=== PATIENT | female | born 2000 | race Caucasian/White ===

== ENCOUNTER 2021-06-18 12:00 | Outpatient (RCR) | payer OTHER, SELFPAY ==
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
--- NOTE | 2021-04-30 22:15 | P.PNPS_ITS ---
TMS Daily Progress Note Daily TMS Progress Note Date of Service: 04/30/21 Week #: 1 Treatment #(07-26): 1 PHQ-9 Pre-Treatment (07-23): 19 PHQ-9 Most Recent (07-23): 19 Reviewed: TMS Mapping/Re-mapping completed Verification: I have reviewed the TMS Print Shop Manager Note and agree with the contents. The patient remains a candidate to continue TMS treatment per protocol. Assessment and Plan (1) Major depressive disorder, recurrent severe without psychotic features: Status: Acute (2) Generalized anxiety disorder with panic attacks: Status: Acute NEXT ECT MAPPING COMPLETED WITHOUT DIFFICULTY PATIENT TOLERATED 1ST TREAT MENT
--- NOTE | 2021-05-01 21:11 | HO.TMSDAILY2 ---
TMS Daily Progress Note Daily TMS Progress Note Date of Service: 05/01/21 Week #: 1 Treatment #(07-26): 2 PHQ-9 Pre-Treatment (07-23): 19 PHQ-9 Most Recent (07-23): 19 Reviewed: TMS Tech Note Reviewed Verification: I have reviewed the TMS School Attendance Secretary Note and agree with the contents. The patient remains a candidate to continue TMS treatment per protocol.
--- NOTE | 2021-05-05 22:02 | P.PNPS_ITS ---
TMS Daily Progress Note Daily TMS Progress Note Date of Service: 05/04/21 Week #: 1 Treatment #(07-26): 3 PHQ-9 Pre-Treatment (07-23): 19 PHQ-9 Most Recent (07-23): 19 Reviewed: TMS Tech Note Reviewed Verification: I have reviewed the TMS Training And Development Specialist Note and agree with the contents. The patient remains a candidate to continue TMS treatment per pro tocol. Assessment and Plan (1) Major depressive disorder, recurrent severe without psychotic features: Status: Acute (2) Generalized anxiety disorder with panic attacks: Status: Acute Continue TMS treatment patient without adverse effects late entry 05/04
--- NOTE | 2021-05-05 22:07 | HO.TMSDAILY2 ---
TMS Daily Progress Note Daily TMS Progress Note Date of Service: 05/05/21 Week #: 1 Treatment #(07-26): 4 PHQ-9 Pre-Treatment (07-23): 19 PHQ-9 Most Recent (07-23): 19 Reviewed: TMS Tech Note Reviewed Verification: I have reviewed the TMS Case Coordinator Note and agree with the contents. The patient remains a candidate to continue TMS treatment per protocol. Assessment and Plan (1) Major depressive disorder, recurrent severe without psychotic features: Status: Acute (2) Generalized anxiety disorder with panic attacks: Status: Acute Continue TMS treatment patient without adverse effects
--- NOTE | 2021-05-06 22:00 | HO.TMSDAILY2 ---
TMS Daily Progress Note Daily TMS Progress Note Date of Service: 05/06/21 Week #: 1 Treatment #(07-26): 5 PHQ-9 Pre-Treatment (07-23): 19 PHQ-9 Most Recent (07-23): 19 Reviewed: TMS Tech Note Reviewed Verification: I have reviewed the TMS Workforce Development Program Director Note and agree with the contents. The patient remains a candidate to continue TMS treatment per protocol.
--- NOTE | 2021-05-08 21:44 | HO.TMSDAILY2 ---
TMS Daily Progress Note Daily TMS Progress Note Date of Service: 05/07/21 Week #: 2 Treatment #(07-26): 6 PHQ-9 Pre-Treatment (07-23): 19 PHQ-9 Most Recent (07-23): 19 Reviewed: TMS Tech Note Reviewed Verification: I have reviewed the TMS Poultry Raiser Note and agree with the contents. The patient remains a candidate to continue TMS treatment per protocol. Assessment and Plan (1) Major depressive disorder, recurrent severe without psychotic features: Status: Acute (2) Generalized anxiety disorder with panic attacks: Status: Acute Continue TMS treatment patient without adverse effects
--- NOTE | 2021-05-08 21:46 | HO.TMSDAILY2 ---
TMS Daily Progress Note Daily TMS Progress Note Date of Service: 05/08/21 Week #: 2 Treatment #(07-26): 7 PHQ-9 Pre-Treatment (07-23): 19 PHQ-9 Most Recent (07-23): 19 Reviewed: TMS Tech Note Reviewed Verification: I have reviewed the TMS Instrumentation Designer Note and agree with the contents. The patient remains a candidate to continue TMS treatment per protocol. Assessment and Plan (1) Major depressive disorder, recurrent severe without psychotic features: Status: Acute (2) Generalized anxiety disorder with panic attacks: Status: Acute Continue TMS treatment patient without adverse effects no improvement yet noted
--- NOTE | 2021-05-11 21:39 | HO.TMSDAILY2 ---
TMS Daily Progress Note Daily TMS Progress Note Date of Service: 05/11/21 Week #: 2 Treatment #(07-26): 8 PHQ-9 Pre-Treatment (07-23): 19 PHQ-9 Most Recent (07-23): 19 Reviewed: TMS Tech Note Reviewed Verification: I have reviewed the TMS Private Duty Rn Note and agree with the contents. The patient remains a candidate to continue TMS treatment per protocol. Assessment and Plan (1) Major depressive disorder, recurrent severe without psychotic features: Status: Acute (2) Generalized anxiety disorder with panic attacks: Status: Acute Continue TMS treatment patient without adverse effects no improvement yet noted
--- NOTE | 2021-05-12 21:43 | HO.TMSDAILY2 ---
TMS Daily Progress Note Daily TMS Progress Note Date of Service: 05/12/21 Week #: 2 Treatment #(07-26): 9 PHQ-9 Pre-Treatment (07-23): 19 PHQ-9 Most Recent (07-23): 19 Reviewed: TMS Tech Note Reviewed Verification: I have reviewed the TMS Mine Inspector Federal Note and agree with the contents. The patient remains a candidate to continue TMS treatment per protocol. Assessment and Plan (1) Major depressive disorder, recurrent severe without psychotic features: Status: Acute (2) Generalized anxiety disorder with panic attacks: Status: Acute Continue TMS treatment patient without adverse effects no improvement yet noted
--- NOTE | 2021-05-18 23:36 | P.PNPS_ITS ---
TMS Daily Progress Note Daily TMS Progress Note Date of Service: 05/18/21 Week #: 2 Treatment #(07-26): 10 PHQ-9 Pre-Treatment (07-23): 19 PHQ-9 Most Recent (07-23): 19 Reviewed: TMS Tech Note Reviewed Verification: I have reviewed the TMS Marketing Systems Manager Note and agree with the contents. The patient remains a candidate to continue TMS treatment per pr otocol. Assessment and Plan (1) Major depressive disorder, recurrent severe without psychotic features: Status: Acute (2) Generalized anxiety disorder with panic attacks: Status: Acute Continue TMS treatment patient without adverse effects no improvement yet noted
--- NOTE | 2021-05-19 22:11 | P.PNPS_ITS ---
TMS Daily Progress Note Daily TMS Progress Note Date of Service: 05/19/21 Week #: 3 Treatment #(07-26): 11 PHQ-9 Pre-Treatment (07-23): 19 PHQ-9 Most Recent (07-23): 19 Reviewed: TMS Tech Note Reviewed Verification: I have reviewed the TMS Watermaster Note and agree with the contents. The patient remains a candidate to continue TMS treatment per pr otocol. Assessment and Plan (1) Major depressive disorder, recurrent severe without psychotic features: Status: Acute (2) Generalized anxiety disorder with panic attacks: Status: Acute Continue TMS treatment patient without adverse effects no improvement yet noted
--- NOTE | 2021-05-20 16:28 | HO.TMSDAILY2 ---
TMS Daily Progress Note Daily TMS Progress Note Date of Service: 05/20/21 Week #: 3 Treatment #(07-26): 12 PHQ-9 Pre-Treatment (07-23): 19 PHQ-9 Most Recent (07-23): 19 Reviewed: TMS Tech Note Reviewed Verification: I have reviewed the TMS Field Training Agent Note and agree with the contents. The patient remains a candidate to continue TMS treatment per protocol.
--- NOTE | 2021-05-25 23:05 | P.PNPS_ITS ---
TMS Daily Progress Note Daily TMS Progress Note Date of Service: 05/25/21 Week #: 3 Treatment #(07-26): 13 PHQ-9 Pre-Treatment (07-23): 19 PHQ-9 Most Recent (07-23): 19 Reviewed: TMS Tech Note Reviewed Verification: I have reviewed the TMS Glass Cut Off Tender Note and agree with the contents. The patient remains a candidate to continue TMS treatment per pr otocol.
--- NOTE | 2021-05-26 23:26 | P.PNPS_ITS ---
TMS Daily Progress Note Daily TMS Progress Note Date of Service: 05/26/21 Week #: 3 Treatment #(07-26): 14 PHQ-9 Pre-Treatment (07-23): 19 PHQ-9 Most Recent (07-23): 19 Reviewed: TMS Tech Note Reviewed Verification: I have reviewed the TMS Campus Administrative Assistant Note and agree with the contents. The patient remains a candidate to continue TMS treatment per pr otocol. Assessment and Plan (1) Major depressive disorder, recurrent severe without psychotic features: Status: Acute (2) Generalized anxiety disorder with panic attacks: Status: Acute Continue TMS treatment patient without adverse effects no improvement yet noted
--- NOTE | 2021-05-27 22:14 | HO.TMSDAILY2 ---
TMS Daily Progress Note Daily TMS Progress Note Date of Service: 05/27/21 Week #: 3 Treatment #(07-26): 15 PHQ-9 Pre-Treatment (07-23): 19 PHQ-9 Most Recent (07-23): 19 Reviewed: TMS Tech Note Reviewed Verification: I have reviewed the TMS Hearing Screen Coordinator Note and agree with the contents. The patient remains a candidate to continue TMS treatment per protocol. Assessment and Plan (1) Major depressive disorder, recurrent severe without psychotic features: Status: Acute (2) Generalized anxiety disorder with panic attacks: Status: Acute Continue TMS treatment patient without adverse effects no improvement yet noted
--- NOTE | 2021-05-29 23:48 | HO.TMSDAILY2 ---
TMS Daily Progress Note Daily TMS Progress Note Date of Service: 05/29/21 Week #: 4 Treatment #(07-26): 17 PHQ-9 Pre-Treatment (07-23): 19 PHQ-9 Most Recent (07-23): 19 Reviewed: TMS Tech Note Reviewed Verification: I have reviewed the TMS Lottery Manager Note and agree with the contents. The patient remains a candidate to continue TMS treatment per protocol.
--- NOTE | 2021-06-01 23:47 | P.PNPS_ITS ---
TMS Daily Progress Note Daily TMS Progress Note Date of Service: 05/28/21 Week #: 4 Treatment #(07-26): 16 PHQ-9 Pre-Treatment (07-23): 19 PHQ-9 Most Recent (07-23): 19 Reviewed: TMS Tech Note Reviewed Verification: I have reviewed the TMS Equipment Operator/Laborer/Supervisor Note and agree with the contents. The patient remains a candidate to continue TMS treatment per pr otocol.
--- NOTE | 2021-06-01 23:50 | HO.TMSDAILY2 ---
TMS Daily Progress Note Daily TMS Progress Note Date of Service: 06/01/21 Week #: 4 Treatment #(07-26): 18 PHQ-9 Pre-Treatment (07-23): 19 PHQ-9 Most Recent (07-23): 19 Reviewed: TMS Tech Note Reviewed Verification: I have reviewed the TMS Program Management Specialist Note and agree with the contents. The patient remains a candidate to continue TMS treatment per protocol. Assessment and Plan (1) Major depressive disorder, recurrent severe without psychotic features: Status: Acute (2) Generalized anxiety disorder with panic attacks: Status: Acute consider remapping
--- NOTE | 2021-06-03 23:48 | HO.TMSDAILY2 ---
TMS Daily Progress Note Daily TMS Progress Note Date of Service: 06/03/21 Week #: 4 Treatment #(07-26): 19 PHQ-9 Pre-Treatment (07-23): 19 PHQ-9 Most Recent (07-23): 19 Reviewed: TMS Tech Note Reviewed Verification: I have reviewed the TMS Director Bioinformatics Note and agree with the contents. The patient remains a candidate to continue TMS treatment per protocol. Assessment and Plan (1) Major depressive disorder, recurrent severe without psychotic features: Status: Acute (2) Generalized anxiety disorder with panic attacks: Status: Acute consider remap
--- NOTE | 2021-06-05 22:50 | HO.TMSDAILY2 ---
TMS Daily Progress Note Daily TMS Progress Note Date of Service: 06/05/21 Week #: 1 Treatment #(07-26): 21 PHQ-9 Pre-Treatment (07-23): 19 PHQ-9 Most Recent (07-23): 19 Reviewed: TMS Mapping/Re-mapping completed Verification: I have reviewed the TMS Foreclosure Home Inspector Note and agree with the contents. The patient remains a candidate to continue TMS treatment per protocol.
--- NOTE | 2021-06-09 22:36 | P.PNPS_ITS ---
TMS Daily Progress Note Daily TMS Progress Note Date of Service: 06/18/21 Week #: 5 Treatment #(07-26): 21 PHQ-9 Pre-Treatment (07-23): 19 PHQ-9 Most Recent (07-23): 19 Reviewed: TMS Tech Note Reviewed Verification: I have reviewed the TMS Electric Motor Tester Assembler Note and agree with the contents. The patient remains a candidate to continue TMS treatment per p jael. Assessment and Plan (1) Major depressive disorder, recurrent severe without psychotic features: Status: Acute (2) Generalized anxiety disorder with panic attacks: Status: Acute remap completed
--- NOTE | 2021-06-10 23:18 | P.PNPS_ITS ---
TMS Daily Progress Note Daily TMS Progress Note Date of Service: 06/10/21 Week #: 5 Treatment #(07-26): 22 PHQ-9 Pre-Treatment (07-23): 19 PHQ-9 Most Recent (07-23): 19 Reviewed: TMS Tech Note Reviewed Verification: I have reviewed the TMS Infrastructure Design Engineer Note and agree with the contents. The patient remains a candidate to continue TMS treatment per p jael.
--- NOTE | 2021-06-11 23:19 | P.PNPS_ITS ---
TMS Daily Progress Note Daily TMS Progress Note Date of Service: 06/11/21 Week #: 5 Treatment #(07-26): 23 PHQ-9 Pre-Treatment (07-23): 19 PHQ-9 Most Recent (07-23): 19 Reviewed: TMS Tech Note Reviewed Verification: I have reviewed the TMS Principle Software Engineer Note and agree with the contents. The patient remains a candidate to continue TMS treatment per p jael.
--- NOTE | 2021-06-12 17:26 | HO.TMSDAILY2 ---
TMS Daily Progress Note Daily TMS Progress Note Date of Service: 06/12/21 Week #: 6 Treatment #(07-26): 26 PHQ-9 Pre-Treatment (07-23): 19 PHQ-9 Most Recent (07-23): 19 Reviewed: TMS Tech Note Reviewed Verification: I have reviewed the TMS Internet Cafe Manager Note and agree with the contents. The patient remains a candidate to continue TMS treatment per protocol. Assessment and Plan (1) Major depressive disorder, recurrent severe without psychotic features: Status: Acute (2) Generalized anxiety disorder with panic attacks: Status: Acute monitor for response
--- NOTE | 2021-06-15 17:27 | HO.TMSDAILY2 ---
TMS Daily Progress Note Daily TMS Progress Note Date of Service: 06/15/21 Week #: 6 Treatment #(07-26): 27 PHQ-9 Pre-Treatment (07-23): 19 PHQ-9 Most Recent (07-23): 19 Reviewed: TMS Tech Note Reviewed Verification: I have reviewed the TMS Electronic Health Records Specialist Note and agree with the contents. The patient remains a candidate to continue TMS treatment per protocol. Assessment and Plan (1) Major depressive disorder, recurrent severe without psychotic features: Status: Acute (2) Generalized anxiety disorder with panic attacks: Status: Acute monitor for response none to this point
--- NOTE | 2021-06-16 19:50 | HO.TMSDAILY2 ---
TMS Daily Progress Note Daily TMS Progress Note Date of Service: 06/16/21 Week #: 6 Treatment #(07-26): 28 PHQ-9 Pre-Treatment (07-23): 19 PHQ-9 Most Recent (07-23): 19 Reviewed: TMS Tech Note Reviewed Verification: I have reviewed the TMS Siding Coreboard Inspector Note and agree with the contents. The patient remains a candidate to continue TMS treatment per protocol. Assessment and Plan (1) Major depressive disorder, recurrent severe without psychotic features: Status: Acute (2) Generalized anxiety disorder with panic attacks: Status: Acute To this point no response despite remapping
--- NOTE | 2021-06-17 23:13 | P.PNPS_ITS ---
TMS Daily Progress Note Daily TMS Progress Note Date of Service: 06/17/21 Week #: 6 Treatment #(07-26): 29 PHQ-9 Pre-Treatment (07-23): 19 PHQ-9 Most Recent (07-23): 19 Reviewed: TMS Tech Note Reviewed Verification: I have reviewed the TMS Child Caregiver Private Home Note and agree with the contents. The patient remains a candidate to continue TMS treatment per p jael. Assessment and Plan (1) Major depressive disorder, recurrent severe without psychotic features: Status: Acute (2) Generalized anxiety disorder with panic attacks: Status: Acute Patient without clear response no worsening of mood but to this point no improvement
--- NOTE | 2021-06-22 22:46 | P.PNPS_ITS ---
TMS Daily Progress Note Daily TMS Progress Note Date of Service: 06/18/21 Week #: 6 Treatment #(07-26): 30 PHQ-9 Pre-Treatment (07-23): 19 PHQ-9 Most Recent (07-23): 19 CGI-I Most Recent: 4 = No Change Reviewed: TMS Tech Note Reviewed Verification: I have reviewed the TMS Deputy Program Manager Note and agree with the contents. The patient remains a candidate to continue TMS treatment per protocol. Assessment and Plan (1) Major depressive disorder, recurrent severe without psychotic features: Status: Acute (2) Generalized anxiety disorder with panic attacks: Status: Acute Patient without clear response no worsening of mood but to this point no improvement pt and mother wish to stop given no change did discuss options of ketamine esketamine mother and pt may pursue [facility]
== END 2021-06-22 08:08 | disposition home or self-care (01) ==
LOC: HO.PTMS 12:00
PROVIDERS: Visit Provider Psychiatry & Neurology Psychiatry
DX: F33.2 Major depressive disorder, recurrent severe without psychotic features (principal); F41.1 Generalized anxiety disorder; F41.0 Panic disorder [episodic paroxysmal anxiety]
CPT/HCPCS: 90867; 90868; 90869

== ENCOUNTER 2025-02-19 15:22 | Emergency (ER) | payer OTHER, SELFPAY ==
--- NOTE | ~2025-02-19 | CT_ITS ---
CLINICAL HISTORY: Flank pain. kideny stones? CT abdomen and pelvis without contrast Comparison: None provided Findings: Lung bases clear. No acute bony abnormality. Liver and spleen within normal limits. Pancreas and adrenal glands unremarkable. Gallbladder within normal limits. Punctate nonobstructing right renal stone. No left renal or bilateral ureteral stone. No focal abnormality or hydronephrosis. No evidence for aortic aneurysm. No free fluid or adenopathy in the pelvis. No diverticulitis. Appendix not identified. Uterus normal size. No adnexal abnormality. Impression: No acute processes This document has been electronically signed by: Bennie Benites MD on 02/19/2025 19:09:45
[2025-02-19 16:00] VITALS: BP 124/86; PULSE 84; RESP 16; TEMP 36.6; O2SAT 100; BMI 20.8
--- NOTE | 2025-02-19 16:19 | ED.FEMALEGU ---
HPI - Female Genitourinary General Chief complaint: Urogenital-Female Stated complaint: Kidney stones? Time Seen by Provider: 02/19/25 18:01 Source: patient Mode of arrival: ambulatory Limitations: no limitations History of Present Illness ED Provider: William Portillo HPI Narrative: 24 yold female with pmh of kidney stones presents to the ED for right flank pain nausea that started this afternoon. patient denies any abdominal pain, fever, or chills. Patient denies vaginal discharge or abdominal pain. patient states no trauma Related Data Previous Rx's ?Medication ?Instructions ?Recorded ketorolac 10 mg tablet 10 mg PO Q6H PRN pain #20 tabs 02/19/25 ondansetron 4 mg disintegrating 4 mg PO Q8H PRN nausea and 02/19/25 tablet vomiting #8 tabs Allergies Allergy/AdvReac Type Severity Reaction Status Date / Time lamotrigine (From Lamictal) Allergy Intermediate RASH Verified 04/30/21 10:48 Penicillins Allergy Hives Verified 02/19/25 16:03 Review of Systems Review of Systems: right flank pain Yes all other systems are reviewed and are negative [facility] Past Medical History Medical History (Updated 02/19/25 @ 19:45 by JOHANA Preston) Generalized anxiety disorder with panic attacks Major depressive disorder, recurrent severe without psychotic features Physical Exam Vital Signs: Vital Signs: Last Vital Signs Temp 98.2 F 02/19/25 19:51 Pulse 66 02/19/25 19:51 Resp 16 02/19/25 19:51 BP 115/67 02/19/25 19:51 Pulse Ox 98 02/19/25 19:51 O2 Del Method Room Air 02/19/25 19:51 BMI result Body Mass Index 20.8 Const: General: cooperative, healthy appearing, comfortable, no acute distress, well developed, alert, awake and Physically active Orientation/consciousness: patient oriented x3 HEENT: Head: Yes normal to inspection, Yes No palpable skull fracture present, Yes normocephalic and Yes atraumatic Ears: hearing grossly normal bilaterally, external ears normal, TM's normal bilaterally, TM normal on the right, TM normal on the left, EAC's normal and mastoids normal Eyes: General: appearance normal, both eyes and all related structures Neck: Neck: Yes normal visual inspection, Yes full ROM, Yes no lymphadenopathy, Yes no meningeal signs, Yes trachea midline, Yes supple, No anterior neck swelling and No tender Chest: Chest palpation & inspection: normal inspection of the chest and normal palpation of entire chest wall Resp: Effort & Inspection: normal respiratory effort and able to speak in complete sentences Auscultation: clear to auscultation bilaterally Cardio: Jugular venous distension: no JVD Heart sounds: S1 normal heart sound present and S2 normal heart sound present GI: Inspection: Yes normal to inspection Palpation (GI): Soft to palpation, not firm, nontender, no guarding and not rigid : General: Yes CVA tenderness (Right) Back/Spine/Pelvis: Back: CVA tenderness (Right) and No back tenderness Skin: General skin exam: no rashes or lesions noted, elasticity normal and turgor normal Neuro: General: patient oriented x3, gait normal, tone normal, moves all extremities, Normal light touch and pain sensation, no meningeal signs, no focal motor deficits and CN's II-XI intact bilaterally Extrem: General: Yes normal to inspection, Yes full ROM and Yes capillary refill normal Psych: Appearance: grossly normal, well kempt and not disheveled Course Course Course Narrative: RME: 23-year-old female presents to ED for right flank pain with nausea vomiting. Patient states history of kidney stones. Positive for right flank CVA. Labs UA Zofran ordered Medications Administered Discontinued Medications Generic Name Dose Route Start Last Admin Trade Name Freq PRN Reason Stop Dose Admin Ketorolac Tromethamine 30 mg 02/19/25 18:01 02/19/25 18:17 Ketorolac Tromethamine 30 Mg/Ml Vial IVPUSH 02/19/25 18:02 30 mg ONCE ONE Administration Ondansetron HCl 4 mg 02/19/25 16:06 02/19/25 16:08 Ondansetron Odt 4 Mg Tab.Rapdis TRANSLINGU 02/19/25 16:07 4 mg ONCE ONE Administration Medical Decision Making Medical Decision Making [facility] Narrative: 24 yold female with pmh of kidney stones presents to the ED Right flank pain with dysuria and worse on movement. Patinet deneis any fever, chill, urinary incontinence, or abdominal pain. labs are reassuring. UA shows blood so patient sent for abdominal CT scan withut contract. Shows right renal stone. Patient states pain resolved after toradol and zofran. Patient and mother explained worrisome signs and informed to return to the ED. not suspecting appendicitis, ovarian torsion, ectopcic , or any other concerning symptoms. Differential Diagnosis Differential Diagnoses: The differential diagnosis associated with the presentation includes (kidney stones, pyelonephritits, UTI) Admission/Observation Consideration of admission/observation: Escalation of care including admission/observation considered Lab Data MDM Lab Attestation statement: I reviewed the patient's lab results. 02/19/25 16:20 02/19/25 16:20 Labs: Lab Results 02/19/25 02/19/25 Range/Units 16:20 16:50 WBC 10.7 (4.8-10.8) X10*3/uL RBC 4.11 L (4.20-5.50) X10*6/uL Hgb 12.0 (12.0-16.0) g/dl Hct 34.0 L (37.0-47.0) % MCV 82.7 (80.0-98.0) fL MCH 29.2 (27.0-33.0) pg MCHC 35.3 H (31.0-35.0) g/dl RDW 11.9 (11.0-16.0) % Plt Count 300 (160-400) X10*3/uL MPV 10.5 (9.4-12.3) fL Immature Gran % (Auto) 0.5 H (0.0-0.4) % Neut % (Auto) 79.9 H (45-73) % Lymph % (Auto) 14.1 L (20-40) % Early % (Auto) 5.0 (2-11) % Eos % (Auto) 0.2 (0-4) % Baso % (Auto) 0.3 (0-2) % Lymph # (Auto) 1.5 (1.2-4.9) X10*3/uL Early # (Auto) 0.5 (0.1-1.2) X10*3/uL Eos # (Auto) 0.0 (0.0-0.4) X10*3/uL Baso # (Auto) 0.0 (0.0-0.2) X10*3/uL Abs Immat Gran (auto) 0.05 H (0.00-0.03) X10*3/uL Absolute Neuts (auto) 8.5 H (2.0-8.3) x10*3/uL Absolute Nucleated RBC 0.000 (0.0-0.012) X10*3/uL Nucleated RBC % (auto) 0.0 (0.0-0.2) /100WBC Sodium 134 L (135-145) mmol/L Potassium 4.2 (3.3-5.1) mmol/L Chloride 103 (96-108) mmol/L Carbon Dioxide 23 (22-29) mmol/L Anion Gap 12 (12-20) BUN 15 (9-16) mg/dL Creatinine 0.60 (0.5-1.4) mg/dL Estim Creat Clear Calc 125.9 Estimated GFR > 60 Random Glucose 98 (60-115) mg/dL Calcium 9.5 (8.4-10.2) mg/dL Total Bilirubin 0.5 (0.0-1.0) mg/dL AST 28 (5-31) U/L ALT 19 (0-31) U/L Alkaline Phosphatase 59 (39-117) U/L Total Protein 7.2 (6.5-8.0) g/dL Albumin 4.4 (3.5-5.0) g/dL Beta HCG, Quant < 2 mIU/mL Urine Color Yellow Urine Appearance Clear Urine pH 7.5 (5.0-9.0) Ur Specific [place] 1.025 (1.005-1.025) Urine Protein 30 (1+) H (Neg-Trace) mg/dL Urine Glucose (UA) Negative (Negative) mg/dL Urine Ketones Negative (Negative) mg/dL Urine Blood Moderate (2+) H (Negative) Urine Nitrite Negative (Negative) Ur Leukocyte Esterase Trace H (Negative) Urine RBC 11-20 H (0-2) /HPF Urine WBC 0-5 (0-5) /HPF Ur Squamous Epith Cells 0-2 (0-2) /HPF Urine Bacteria None Seen (None Seen) Hyaline Casts 0-2 (0-2) /LPF Urine Test NEGATIVE (NEGATIVE) Independent Interpretation I performed an independent interpretation of an: CT Scan Radiology Impression Discussion of test interpretation with radiology: I have reviewed the radiologist's reading. Independent Historian Clinical information obtained from an independent historian. History obtained from or confirmed by: Other (patient) Discharge Plan Discharge Clinical Impression: Renal colic on right side Patient Disposition: Home, Self-Care Instructions: Renal Colic (ED), Flank Pain (ED) Additional Instructions: Recommend follow-up with urologist and primary care provider. Return to the ED immediately for any abdominal pain, nausea, vomiting, flank pain, fever, chills, night sweats, blood in urine, weakness, dizziness, or any other concerning symptoms. Ordering Physician: William Portillo Date of Service: 02/19/25 Procedure(s): CT abdomen pelvis wo IV con Accession Number(s): [id number] cc: William Portillo; Physician,Unknown ~ Report Number: [id number]: Total DLP = 388.00 mGy-cm CLINICAL HISTORY: Flank pain. kideny stones? CT abdomen and pelvis without contrast Comparison: None provided Findings: Lung bases clear. No acute bony abnormality. Liver and spleen within normal limits. Pancreas and adrenal glands unremarkable. Gallbladder within normal limits. Punctate nonobstructing right renal stone. No left renal or bilateral ureteral stone. No focal abnormality or hydronephrosis. No evidence for aortic aneurysm. No free fluid or adenopathy in the pelvis. No diverticulitis. Appendix not identified. Uterus normal size. No adnexal abnormality. Impression: No acute processes This document has been electronically signed by: Bennie Benites MD on 02/19/2025 19:09:45 Dictated By: Bennie Benites MD Signed By: <Electronically signed by Bennie Benites MD in OV> 02/19/25 1910 Prescriptions: New ketorolac 10 mg tablet 10 mg PO Q6H PRN (Reason: pain) Qty: 20 0RF Rx Instructions: patient received 30mg IM toradol in the ED ondansetron 4 mg tablet,disintegrating 4 mg PO Q8H PRN (Reason: nausea and vomiting) Qty: 8 0RF Referrals: [facility] [Provider Group, Urology] - 2 days Referral Note: Renal colic. History of kidney stones Clinical Impression: Renal colic on right side Stand Alone Forms: Work/School Release Interventions: ED Discharge Assessment Last Done: 02/19/25 19:51 Discharge Date/Time: 02/19/25 20:00 Print Language: Luxembourgish
[2025-02-19 16:25] LABS: MANUAL DIFF FLAG NO
[2025-02-19 16:29] LABS: Hematocrit 34.0 % (37.0-47.0); Hemoglobin 12.0 g/dl (12.0-16.0); Imm Gran Abs Auto 0.05 X10*3/uL (0.00-0.03); Imm Gran Pct Auto 0.5 % (0.0-0.4); Lymphocytes Absolute Auto 1.5 X10*3/uL (1.2-4.9); Mean Corpuscular HGB Conc 35.3 g/dl (31.0-35.0); Mean Corpuscular Hemoglobin 29.2 pg (27.0-33.0); Mean Corpuscular Volume 82.7 fL (80.0-98.0); NRBC Abs Auto 0.000 X10*3/uL (0.0-0.012); NRBC Pct Auto 0.0 /100WBC (0.0-0.2); Platelet Count 300 X10*3/uL (160-400); Red Blood Count 4.11 X10*6/uL (4.20-5.50); White Blood Count 10.7 X10*3/uL (4.8-10.8)
--- OUTSIDE RECORDS SUMMARY | 2025-02-19 16:48 | XMS_ITS | Encounter Summary ---
Author Organization [facility] Address [address] [place] [address] Phone Care Team Providers Care Record Clerk Salesperson Name Role Phone Elizabeth Rhodes MD Primary Care Provider [phone] Reason for Visit * Reason Comments Med Refill Encounter Details Date Type Department Care Team (Late st Contact Info) Description 08/08/2018 Refill [facility] - [address] [address] [place] [address] [place] [id number] Current severe episode of major depressive disorder without psychotic features without prior episode; Anxiety Social History Tobacco Use Types Packs/Day Years Used Date Smoking Tobacco: Never Smokeless Tobacco: Never Comments Unknown Sex and Gender Information Value Date Recorded Sex Assigned at Not on file Legal Sex Female 6:18 PM EDT Gender Identity Female 12/14/2021 9:53 PM EDT Sexual Orientation Bisexual 11/28/2020 2: 39 PM EDT documented as of this encounter Miscellaneous Notes * Telephone Encounter - Elizabeth Rhodes MD - 08/09/2018 2:15 PM EST Seen yesterday and Rx sent. documented in this encounter Plan of Treatment Not on file documented as of this encounter Visit Diagnoses Diagnosis Current severe episode of major depressive disorder without psychotic features without prior episode Anxiety Anxiety state, unspecified documented in this encounter Care Teams Record Clerk Salesperson Relationship Specialty Start Date End Date Elizabeth Rhodes MD [address] [facility] [place] [address] PCP - General 11/02/17 09/28/22 documented as of this encounter
--- OUTSIDE RECORDS SUMMARY | 2025-02-19 16:48 | XMS_ITS | Encounter Summary ---
Author Organization [facility] Address [address] [place] [address] Phone Care Team Providers Care Deep Submergence Vehicle Operator Name Role Phone Elizabeth Rhodes MD Primary Care Provider [phone] Reason for Visit * Reason Comments Med Refill Encounter Details Date Type Department Care Team (Late st Contact Info) Description 04/12/2022 Refill [facility] - [address] [address] Elizabeth Rhodes MD [address] [place] [address] Dysmenorrhea Social History Tobacco Use Types Packs/Day Years Used Date Smoking Tobacco: Never Smokeless Tobacco: Never Hunger/Food Answer Date Recorded In the last 12 months, did y ou or your family ever eat less than you felt you should because there wasn't enough money for food? No 11/28/2020 Stable Housing Answer Date Recorded Are you worried that in the next 2 months you may not have stable housing? No 11/28/2020 Transportation Concerns Answer Date Rec orded In the last 12 months, have you or your family ever had to go without healthcare because you didn't have a way to get there? No 11/28/2020 Hazards in Home Answer Date Recorded Think about the place you li ve. Do you have problems with any of the following? Pests (mice or roaches), mold, no/not working smoke detectors, water leaks, no window guards. No 2020 Financing Utilities Answer Date Recorde d In the last 12 months, has t he electric, gas, oil, or water company threatened to shut off your services in your home? No 11/28/2020 Safety at Home Answer Date Recorded Are you or your family worried about feeling saf e in your home? No 11/28/2020 Outside Support Answer Date Recorded Do you feel that you need mo re support from other people or programs to help you care for yourself or your family? No 11/28/2020 Understanding Health Concerns Answer Da te Recorded Do you need help understandi ng your or your child's healthcare needs (diagnosis, medications, plan, etc.)? No 11/28/2020 Financing Health Concerns Answer Date R ecorded In the last 12 months, was t here a time when your child needed to see a doctor or get medications or supplies but could not because of cost? No 11/28/2020 Missing School or Work Answer Date Oscar rded Did you or your child miss s chool or work because of a health problem that could have been avoided? No 11/28/2020 Comments No Sex and Gender Information Value Date Recorded Sex Assigned at Not on file Legal Sex Female 6:18 PM EDT Gender Identity Female 12/14/2021 9:53 PM EDT Sexual Orientation Bisexual 11/28/2020 2: 39 PM EDT documented as of this encounter Plan of Treatment Not on file documented as of this encounter Visit Diagnoses Diagnosis Dysmenorrhea documented in this encounter Care Teams Deep Submergence Vehicle Operator Relationship Specialty Start Date End Date Elizabeth Rhodes MD [address] [place] [address] [place] [address] PCP - General 11/02/17 09/28/22 documented as of this encounter
[2025-02-19 16:50] LABS: Alanine Aminotransferase 19 U/L (0-31); Albumin Level 4.4 g/dL (3.5-5.0); Alkaline Phosphatase 59 U/L (39-117); Anion Gap 12 (12-20); Aspartate Amino Transferase 28 U/L (5-31); Blood Urea Nitrogen 15 mg/dL (9-16); Calcium 9.5 mg/dL (8.4-10.2); Carbon Dioxide 23 mmol/L (22-29); Chloride 103 mmol/L (96-108); Creatinine Clr Calc Pharmacy 125.9; Estimated Glomerular Filt Rate > 60; Potassium 4.2 mmol/L (3.3-5.1); Sodium 134 mmol/L (135-145); Total Protein 7.2 g/dL (6.5-8.0)
--- OUTSIDE RECORDS SUMMARY | 2025-02-19 16:50 | XMS_ITS | Encounter Summary ---
Author Organization [facility] Address [address] [place] [address] Phone Care Team Providers Care Forestry Instructor Name Role Phone Elizabeth Rhodes MD Primary Care Provider [phone] Encounter Details Date Type Department Care Team (Late st Contact Info) Description 02/10/2017 Conversion Encounter [facility] - [address] [address] Social History Tobacco Use Types Packs/Day Years Used Date Smoking Tobacco: Never Assessed Comments Unknown Sex and Gender Information Value Date Recorded Sex Assigned at Not on file Legal Sex Female 6:18 PM EDT Gender Identity Female 12/14/2021 9:53 PM EDT Sexual Orientation Bisexual 11/28/2020 2: 39 PM EDT documented as of this encounter Plan of Treatment Not on file documented as of this encounter Visit Diagnoses Not on filedocumented in this encounter Care Teams Forestry Instructor Relationship Specialty Start Date End Date Elizabeth Rhodes MD [address] [place] [address] PCP - General 11/02/17 09/28/22 documented as of this encounter
--- OUTSIDE RECORDS SUMMARY | 2025-02-19 16:50 | XMS_ITS | Encounter Summary ---
Author Organization [facility] Address [address] [place] [address] Phone Care Team Providers Care Television Production Clerk Name Role Phone Elizabeth Rhodes MD Primary Care Provider [phone] Encounter Details Date Type Department Care Team (Late st Contact Info) Description 05/06/2014 Conversion Encounter [facility] - [place] [address] [place] [address] [place] [address] Social History Tobacco Use Types Packs/Day Years [...] on filedocumented in this encounter Care Teams Television Production Clerk Relationship Specialty Start Date End Date Elizabeth Rhodes MD [address] [place] [address] PCP - General 11/02/17 09/28/22 documented as of this encounter
--- OUTSIDE RECORDS SUMMARY | 2025-02-19 16:50 | XMS_ITS | Encounter Summary ---
Author Organization [facility] Address [address] [place] [address] Phone Care Team Providers Care Senior Corporate Recruiter Name Role Phone Elizabeth Rhodes MD Primary Care Provider [phone] Reason for Visit * Reason Comments Med Refill Encounter Details Date Type Department Care Team (Late st Contact Info) Description 06/12/2021 Refill [facility] - [address] [place] [address] Elizabeth Rhodes MD [address] [place] [address] Dysmenorrhea Social History Tobacco Use Types Packs/Day [...] Telephone Encounter - Elizabeth Rhodes MD - 06/12/2021 5:35 PM EST RF request came in for leonardo. Had been sent 1 month ago with a note that she needed to keep the 06/05/21 appt or she would not get a year supply. The 06/05/21 appt was cancelled and not rescheduled.Rx sent for 3 patches NO refills. She will not get any more refills until she is seen in the office. . documented in this encounter Plan of Treatment Not on file documented as of this encounter Visit Diagnoses Diagnosis Dysmenorrhea documented in this encounter Care Teams Senior Corporate Recruiter Relationship Specialty Start Date End Date Eilzabeth Rhodes MD [address] [place] [address] PCP - General 11/02/17 09/28/22 documented as of this encounter
--- OUTSIDE RECORDS SUMMARY | 2025-02-19 16:50 | XMS_ITS | Encounter Summary ---
Author Organization [facility] Address [address] [place] [address] Phone Care Team Providers Care Alarm Installation Technician Name Role Phone Elizabeth Rhodes MD Primary Care Provider [phone] Reason for Visit * Reason Comments Med Refill Encounter Details Date Type Department Care Team (Late st Contact Info) Description 03/26/2021 Refill [facility] - [address] [address] Mariah Foster MD Dysmenorrhea Social History Tobacco Use Types Packs/Day [...] Dysmenorrhea documented in this encounter Care Teams Alarm Installation Technician Relationship Specialty Start Date End Date Elizabeth Rhodes MD [address] [place] [address] PCP - General 11/02/17 09/28/22 documented as of this encounter
[2025-02-19 17:07] LABS: Appearance Urine Clear; Glucose Urine UA Negative (Negative); PH 7.5 (5.0-9.0); Specific Gravity - Urine 1.025 (1.005-1.025); UMIC TRIGGER UACC YES
[2025-02-19 17:09] LABS: UPreg QC Valid YES
[2025-02-19 19:50] VITALS: BP 115/67; PULSE 66; RESP 16; TEMP 36.8; O2SAT 98
[2025-02-19 19:51] VITALS: BP 115/67; PULSE 66; RESP 16; TEMP 36.8; O2SAT 98
== END 2025-02-19 20:00 | disposition home or self-care (01) ==
PROVIDERS: Emergency Provider Emergency Medicine Emergency Medical Services
DX: R11.2 Nausea with vomiting, unspecified (principal); N23 Unspecified renal colic; R30.0 Dysuria; Z87.442 Personal history of urinary calculi
CPT/HCPCS: 36415; 74176; 80053; 81001; 81025; 84702; 85025; 96374; 99284; J1885

== ENCOUNTER → 2025-02-19 17:53 | Outpatient (BNV) | payer OTHER, SELFPAY | PROVIDERS: Emergency Provider Emergency Medicine Emergency Medical Services; Visit Provider Radiology Diagnostic Radiology | DX: R10.9 Unspecified abdominal pain (principal) | CPT/HCPCS: 74176 ==